=== PATIENT | female | born 1965 | race Caucasian/White ===

== ENCOUNTER → 2016-11-18 | Outpatient (CLI) | payer BC ==
--- NOTE | 2016-11-18 12:47 | Diagnostic Imaging Report ---
PROCEDURE: MRI right joint lower extremity without contrast. TECHNIQUE: Multiplanar, multisequence MR imaging of the right knee was performed without contrast. COMPARISON: None available. INDICATION: Right knee pain after injury. FINDINGS: MENISCI Medial meniscus: Normal. Lateral meniscus: Normal. LIGAMENTS ACL: Complete rupture of the ACL in its mid substance. PCL: Intact. MCL: Intact. LCL: The lateral collateral ligamentous complex is intact. EXTENSOR MECHANISM The extensor mechanism is intact. CARTILAGE No acute osteochondral injury or chondral defect. 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 No foci of full-thickness chondromalacia in the knee. BONE There are contusions in the central weightbearing portion of the lateral femoral condyle and the posterior aspect of lateral tibial plateau (compatible with kissing contusions seen with pivot shift injury). No fracture. SOFT TISSUE: Small knee joint effusion and small Roberson's cyst. No edema-like signal in the region of the posterolateral corner to indicate posterolateral corner injury. IMPRESSION: 1. Complete rupture of the ACL. 2. No evidence of posterolateral corner injury. 3. Bone contusions in the central aspect of the lateral femoral condyle and posterior aspect of the lateral tibial plateau are compatible with "kissing" contusions secondary to pivot shift injury. 4. No meniscal tear. 5. MCL is intact. Dictated by: Dictated on workstation # [id number]
== END ==
LOC: RAD 10:55
PROVIDERS: ATTEND Orthopaedic Surgery
DX: S83.511A Sprain of anterior cruciate ligament of right knee, initial encounter (principal); M25.461 Effusion, right knee; M71.21 Synovial cyst of popliteal space [Baker], right knee; X58.XXXA Exposure to other specified factors, initial encounter; Y99.8 Other external cause status
CPT/HCPCS: 73721

== ENCOUNTER → 2018-06-15 | Outpatient (CLI) | payer BC ==
--- NOTE | 2018-06-15 09:32 | Diagnostic Imaging Report ---
EXAM TIME: 06/15/2018 at 9:24 AM. REASON FOR EXAM: URINARY PAIN. COMPARISON: None. TECHNIQUE: High resolution Real-time imaging of both testicles was performed. FINDINGS: The testicles are normal in size, shape, and echogenicity. The right testis measures 4.3 x 3.2 x 2.7 cm. The left testis measures 4.1 x 2.0 x 3.5 cm. There is normal color flow Doppler signal of both testicles. No focal testicular mass is seen on either side. The right epididymis is normal. The left epididymis is enlarged, heterogeneous, and hyperemic. There is a small left hydrocele. IMPRESSION: Left epididymitis. Small left hydrocele. Dictated by: Dictated on workstation # [id number]
== END ==
LOC: RAD 08:34
PROVIDERS: ATTEND Nurse Practitioner Family
DX: N43.3 Hydrocele, unspecified (principal); N45.1 Epididymitis; N23 Unspecified renal colic
CPT/HCPCS: 76870

== ENCOUNTER → 2023-02-24 | Outpatient (CLI) | payer BC ==
--- NOTE | 2023-02-24 12:01 | Diagnostic Imaging Report ---
EXAMINATION: US Scrotum w/ Duplex TECHNIQUE: Multiple realtime love images were obtained of the scrotum in various projections bilaterally. Color Doppler images were also obtained. HISTORY: Left testicular pain COMPARISON: 06/15/2018 FINDINGS: The right testicle measures 4.6 x 2.0 x 3.2 cm. The left testicle measures 4.5 x 1.8 x 3.1 cm. Both testis are normal in echogenicity. No mass is seen. There is no hydrocele. There are small bilateral hydroceles. There is enlargement and hypervascularity of the left epididymis of the head measuring 1.6 cm. Duplex images reveal normal arterial inflow to both testis. IMPRESSION: 1. Increased vascularity and enlargement of the left epididymis Dictated by: Dictated on workstation # [id number]
== END ==
LOC: RAD 10:48
PROVIDERS: ATTEND Registered Nurse Critical Care Medicine
DX: N45.1 Epididymitis (principal); N43.2 Other hydrocele
CPT/HCPCS: 76870